=== PATIENT | female | born 1955 | race Caucasian/White ===

== ENCOUNTER 2020-09-30 06:13 | Inpatient (IN) | payer MEDICARE, OTHER ==
[~2020-09-30] VITALS: Ht 167.6 cm; Wt 103.9 kg
[~2020-09-30 06:13] MED LIST: ALEN70TA74 PO; ALPR0.25 PO; CYCL10TA6 PO; DICL1GEL72 EX; ESCI10TA PO; GABA100C9 PO; LEVO25TA6 PO; LISI-648 PO; NAP500T PO; SIMV10TA84 PO
[2020-09-30] MEDS ORDERED: HYDROmorphone HCL 2 MG/ML VL ONE (06:54)
[2020-09-30] MEDS ORDERED: fentaNYL CITRATE 5 ML ONE ×2 (06:54→08:25)
[2020-09-30] MEDS ORDERED: fentaNYL CITRATE 100 MCG/2 ML VL ONE (06:54)
[2020-09-30] MEDS ORDERED: MIDAZOLAM HCL 1MG/1ML-2 ML VIAL ONE (06:55)
[2020-09-30] MEDS ORDERED: ONDANSETRON HCL 4 MG/2 ML VIAL ONE (06:55)
[2020-09-30] MEDS ORDERED: SODIUM CHLORIDE LOCK 20 ML ONE (06:55)
[2020-09-30] MEDS ORDERED: PROPOFOL 10 MG/ML 20 ML IV ONE (06:55)
[2020-09-30] MEDS ORDERED: ROCURONIUM 10MG/ML 10ML VIAL IV ONE (06:55)
[2020-09-30] MEDS ORDERED: BUPIVACAINE 0.25% INJ 50ML VIAL ONE (07:02)
[2020-09-30] MEDS ORDERED: VANCOMYCIN HCL 1000 MG VL ONE (07:04)
[2020-09-30] MEDS ORDERED: ceFAZolin 1GM/50ML 100 ML IV ONE (07:05)
[2020-09-30] MEDS ORDERED: MORPHINE SULF(PF) 0.5MG/ML 10ML VIAL ONE (07:06)
[2020-09-30] MEDS ORDERED: KETOROLAC TROMETH 30 MG/ML 1ML VIAL ONE (07:06)
[2020-09-30] MEDS ORDERED: TRANEXAMIC ACID 20 ML ONE (07:56)
[2020-09-30] MEDS ORDERED: NEOSTIGMINE 1 MG/ML INJ (10mg/10ML VIAL) ONE (08:49)
[2020-09-30] MEDS ORDERED: GLYCOPYRROLATE 0.2 MG/ML 1ML VIAL ONE (08:49)
[2020-09-30] MEDS ORDERED: BACITRACIN INJ 50000 UNIT VIAL ONE (10:03)
[2020-09-30] MEDS ORDERED: ALPRAZolam 0.25 MG TAB PO PRN (11:00)
[2020-09-30] MEDS ORDERED: HYDROcodone-ACET 5/325MG TAB PO PRN (11:00)
[2020-09-30] MEDS ORDERED: NITROGLYCERIN 0.4 MG SL TAB SL PRN (11:00)
[2020-09-30] MEDS ORDERED: MORPHINE SULF INJ 2 MG/ML SYRINGE 1ML IV PRN (11:00)
[2020-09-30] MEDS ORDERED: ONDANSETRON HCL 4 MG/2 ML VIAL IV PRN ×2 (11:00→11:15)
[2020-09-30] MEDS ORDERED: ACETAMINOPHEN 325 MG TAB PO PRN (11:00)
[2020-09-30] MEDS ORDERED: MORPHINE SULFATE 4 MG/ML SYR/VIAL IV PRN (11:15)
[2020-09-30] MEDS ORDERED: HYDROmorphone HCL 2 MG/ML VL IV PRN (11:15)
[2020-09-30] MEDS: LACTATED RINGER'S 1,000 ML IV SCH ×2 (12:02→21:25)
[2020-09-30 13:00] VITALS: BP 141/71
[2020-09-30] MEDS: GABAPENTIN 100 MG CAP PO SCH ×2 (14:46→21:21)
[2020-09-30] MEDS: ceFAZolin 1GM/50ML 50 ML IV SCH ×2 (14:46→21:15)
[2020-09-30] MEDS: HYDROmorphone HCL 2 MG/ML VL IV PRN ×2 (15:06→21:15)
[2020-09-30 17:00] VITALS: BP 141/76
[2020-09-30] MEDS: DOCUSATE SOD 100 MG CAP PO SCH (21:20)
[2020-09-30 22:00] VITALS: BP 134/61
[2020-09-30] MEDS ORDERED: PATIENTS OWN MEDICATION (Simvastatin 10 MG) PO SCH (22:00)
[2020-09-30] MEDS ORDERED: CYCLOBENZAPRINE HCL 10 MG TAB PO SCH (22:00)
[2020-09-30] MEDS ORDERED: PRAVASTATIN SODIUM 20 MG TAB PO SCH (22:00)
[2020-10-01] MEDS: HYDROmorphone HCL 2 MG/ML VL IV PRN ×2 (02:51→06:32)
[2020-10-01] MEDS: ceFAZolin 1GM/50ML 50 ML IV SCH (03:17)
[2020-10-01 05:00] VITALS: BP 136/73
[2020-10-01] MEDS: GABAPENTIN 100 MG CAP PO SCH (05:39)
[2020-10-01] MEDS: LACTATED RINGER'S 1,000 ML IV SCH (05:45)
[2020-10-01 06:30] LABS: Basophils # (auto) 0 10 ^3/uL (0-0.2); Basophils % (auto) 0.1 % (0.0-2.0); Eosinophils # (auto) 0 10 ^3/uL (0-0.8); Hematocrit 34.6 % (36.0-46.0); Hemoglobin 11.4 g/dL (12.2-16.2); Lymphocytes # (auto) 1.4 10 ^3/uL (0.4-5.4); Lymphocytes % (auto) 11.2 % (10.0-50.0); Mean Corpuscular Hemoglobin 29.9 pg (28.0-32.0); Mean Corpuscular Hgb Conc. 32.9 g/dL (32.0-36.0); Mean Corpuscular Volume 90.8 fL (80.0-100.0); Monocytes # (auto) 0.9 10 ^3/uL (0-1.3); Monocytes % (auto) 7.1 % (0.0-12.0); Neutrophils # (auto) 10.3 10 ^3/uL (1.6-8.6); Neutrophils % (auto) 81.6 % (37.0-80.0); Platelet Count (auto) 283 10^3/uL (140-450); Red Blood Cells 3.82 10^6/uL (4.0-5.20); Red Cell Distribution Width 14.5 % (11.8-14.3); White Blood Cell 12.6 10^3/uL (4.4-10.8)
[2020-10-01 06:35] LABS: Potassium 3.9 mmol/L (3.5-5.1)
[2020-10-01 06:40] LABS: BUN/Creatinine Ratio 22.2; Calcium 8.2 mg/dL (8.5-10.1)
[2020-10-01] MEDS ORDERED: LEVOTHYROXINE SODIUM 25 MCG TAB PO SCH (07:00)
[2020-10-01 09:07] VITALS: BP 121/63
[2020-10-01] MEDS ORDERED: LISINOPRIL 10 MG TAB PO SCH (10:00)
[2020-10-01] MEDS ORDERED: ESCITALOPRAM OXALATE PO SCH (10:00)
[2020-10-01] MEDS ORDERED: CITALOPRAM HYDROBR 20 MG TAB PO SCH (10:00)
[2020-10-01] MEDS: DOCUSATE SOD 100 MG CAP PO SCH (10:32)
[2020-10-01 11:22] VITALS: BP 121/63
== END 2020-10-01 12:10 | disposition home or self-care (01) | DRG 483 ==
LOC: OVERFLOW 06:13 → EDSTATUS 07:00 → WEST WING 12:20
PROVIDERS: ADMIT Orthopaedic Surgery Sports Medicine; ATTEND Orthopaedic Surgery Sports Medicine
PROC: 0RRJ00Z Replacement of Right Shoulder Joint with Reverse Ball and Socket Synthetic Substitute, Open Approach (ICD-10-PCS; principal; 2020-09-30 07:31)
DX: M19.011 Primary osteoarthritis, right shoulder (principal); Z20.822 Contact with and (suspected) exposure to COVID-19
CPT/HCPCS: 36415; 73020; 80048; 85025; 86850; 86900; 86901; G0378; J0690; J1885; J2250; J2405; J2704; J3490

== ENCOUNTER 2022-12-21 06:02 | Inpatient (IN) | payer MEDICARE, OTHER ==
[~2022-12-21] VITALS: Ht 167.6 cm; Wt 113.4 kg
[~2022-12-21 06:02] MED LIST changes: +BACL10TA PO; +CELE200C PO; -CYCL10TA6 PO; -DICL1GEL72 EX; +GABA-1308 PO; -GABA100C9 PO; +LEVO125C3 PO; -LEVO25TA6 PO; -LISI-648 PO; +LOSA25TA15 PO; -NAP500T PO; +SIMV10TA20 PO; -SIMV10TA84 PO; +TRAM50TA2 PO
[2022-12-21] MEDS ORDERED: EPINEPHrine HCL 1 MG/1 ML AMP ONE (06:41)
[2022-12-21] MEDS ORDERED: DexAMETHasone SOD PHOS 4 MG/1ML SDV INJ ONE (06:41)
[2022-12-21] MEDS ORDERED: LIDOCAINE 2%HCL (LOCAL ANESTH.) INJ 10ml MDV ONE (06:42)
[2022-12-21] MEDS ORDERED: BUPIVACAINE 0.25% INJ 50ML VIAL ONE (06:42)
[2022-12-21] MEDS ORDERED: MIDAZOLAM HCL 2MG/2ML 2ml VIAL (1mg/ml) ONE ×2 (07:18→07:30)
[2022-12-21] MEDS ORDERED: TRANEXAMIC ACID 20 ML ONE (07:25)
[2022-12-21] MEDS ORDERED: HYDROmorphone HCL 2 MG/ML VL/or syr ONE (07:30)
[2022-12-21] MEDS ORDERED: fentaNYL CITRATE 100 MCG/2 ML VL ONE (07:30)
[2022-12-21] MEDS ORDERED: ALPRAZolam 0.25 MG TAB PO PRN (07:30)
[2022-12-21] MEDS ORDERED: PROPOFOL 10 MG/ML 20 ML IV ONE (07:33)
[2022-12-21] MEDS ORDERED: DexAMETHasone SOD PHOS 10MG/1ML VIAL INJ ONE (07:33)
[2022-12-21] MEDS ORDERED: ceFAZolin 1GM/50ML 100 ML IV ONE (07:35)
[2022-12-21] MEDS ORDERED: VANCOMYCIN HCL 1000 MG VL ONE ×2 (07:58→10:04)
[2022-12-21] MEDS ORDERED: PATIENTS OWN MEDICATION (Levothyroxine Sodium 125 MCG) PO SCH (10:00)
[2022-12-21] MEDS ORDERED: ROCURONIUM 10MG/ML 10ML VIAL IV ONE (10:14)
[2022-12-21] MEDS ORDERED: SUGAMMADEX 200mg/2ml Vial (100MG/ML) IV ONE (10:16)
[2022-12-21] MEDS ORDERED: NITROGLYCERIN 0.4 MG SL TAB SL PRN (12:00)
[2022-12-21] MEDS ORDERED: MORPHINE SULFATE INJ 2 MG/ml SYRG IV PRN (12:00)
[2022-12-21] MEDS: LOSARTAN POTASSIUM 25 MG TAB PO SCH (14:00)
[2022-12-21 14:56] VITALS: BP 115/85
[2022-12-21] MEDS: LEVOTHYROXINE SODIUM 50 MCG TAB PO SCH (15:42)
[2022-12-21 17:00] VITALS: BP 105/50
[2022-12-21] MEDS ORDERED: PRAVASTATIN SODIUM 20 MG TAB PO SCH (22:00)
[2022-12-21] MEDS ORDERED: PATIENTS OWN MEDICATION (Simvastatin 10 MG) PO SCH (22:00)
[2022-12-21 23:51] VITALS: BP 115/59
[2022-12-22] MEDS ORDERED: HYDROcodone-ACET 5/325MG TAB PO PRN (02:30)
[2022-12-22 05:00] VITALS: BP 146/60
[2022-12-22 08:00] VITALS: BP 128/64
[2022-12-22] MEDS: LEVOTHYROXINE SODIUM 50 MCG TAB PO SCH (09:59)
[2022-12-22] MEDS: LOSARTAN POTASSIUM 25 MG TAB PO SCH (09:59)
[2022-12-22] MEDS ORDERED: ESCITALOPRAM PO SCH (10:00)
[2022-12-22 13:00] VITALS: BP 140/59
[2022-12-22 13:33] VITALS: BP 128/64
== END 2022-12-22 15:30 | disposition home or self-care (01) | DRG 483 ==
LOC: SUR 06:02 → OVERFLOW 11:58 → CENTRAL 14:40
PROVIDERS: ADMIT Orthopaedic Surgery Sports Medicine; ATTEND Orthopaedic Surgery Sports Medicine
PROC: 0LN20ZZ Release Left Shoulder Tendon, Open Approach (ICD-10-PCS; 2022-12-21)
PROC: 0RRK0J6 Replacement of Left Shoulder Joint with Synthetic Substitute, Humeral Surface, Open Approach (ICD-10-PCS; principal; 2022-12-21 07:38)
DX: M19.012 Primary osteoarthritis, left shoulder (principal); Z20.822 Contact with and (suspected) exposure to COVID-19; M75.102 Unspecified rotator cuff tear or rupture of left shoulder, not specified as traumatic
CPT/HCPCS: 73020; 76000; 86850; 86900; 86901; G0378; J0171; J0690; J1100; J2001; J2250; J2704; J3490